=== PATIENT | male | born 1955 | race Two or more races ===

== ENCOUNTER → 2022-04-07 | Outpatient (CLI) | payer OTHER ==
[~2022-04-07] MED LIST: BEBTELOVIMAB (EUA) 175 MG/2 ML VIAL IV NR
[2022-04-07 13:34] VITALS: BP 124/79; PULSE 58; RESP 18; TEMP 98.1
== END ==
LOC: PROCWHC3 12:37
PROVIDERS: ATTEND Family Medicine
DX: U07.1 COVID-19 (principal); E66.9 Obesity, unspecified
CPT/HCPCS: Q0222; M0222